=== PATIENT | female | born 1965 | race Caucasian/White ===

== ENCOUNTER 2021-06-14 11:14 | Outpatient (CLI) | payer OTHER | END 2021-06-14 11:15 | disposition home or self-care (01) | LOC: BICRAD 11:14 | PROVIDERS: ATTEND Internal Medicine | DX: M25.441 Effusion, right hand (principal) ==

== ENCOUNTER 2022-05-17 14:28 | Outpatient (CLI) | payer OTHER | END 2022-05-17 14:29 | disposition home or self-care (01) | LOC: BICMAMMO 14:28 | PROVIDERS: ATTEND Internal Medicine | DX: N63.11 Unspecified lump in the right breast, upper outer quadrant (principal) | CPT/HCPCS: G0279 ==